=== PATIENT | male | born 1940 | race Caucasian/White ===

== ENCOUNTER 2022-01-28 14:18 | Inpatient (IN) | payer OTHER, MEDICAID ==
[~2022-01-28] VITALS: Ht 175.3 cm; Wt 80.3 kg
[2022-01-28 14:30] VITALS: BP_SYST 145
[2022-01-28 14:44] LABS: BASOPHILS % (AUTO) 0.4 % (0.0-2.0); EOSINOPHILS # (AUTO) 0.1 K/uL (0.0-0.4); EOSINOPHILS % (AUTO) 0.7 % (0.0-4.0); HEMATOCRIT 38.5 % (36-54); HEMOGLOBIN 13.2 g/dL (14.0-18.0); LYMPHOCYTES # (AUTO) 0.7 K/uL (1.0-5.5); LYMPHOCYTES % (AUTO) 6.7 % (20.5-51.5); MEAN CORPUSCULAR HEMOGLOBIN 32 pg (27-31); MEAN CORPUSCULAR HGB CONC 34 % (32-36); MEAN CORPUSCULAR VOLUME 95 fL (79.0-98.0); MONOCYTES # (AUTO) 0.6 K/uL (0.0-1.0); NEUTROPHILS % (AUTO) 86.2 % (40.0-70.0); PLATELET COUNT (AUTO) 150 K/uL (130-430); RED BLOOD CELL COUNT(AUTO) 4.07 MIL/uL (4.2-6.2); RED CELL DISTRIBUTION WIDTH 14.8 % (9.0-15.0); WHITE BLOOD COUNT (AUTO) 10.4 K/uL (4.8-10.8)
[2022-01-28 14:59] LABS: ANION GAP 4 (5-15); CALCIUM 9.6 mg/dL (8.4-11.0); CHLORIDE 97 mmol/L (98-107); CREATININE 0.73 mg/dL (0.55-1.30); GLUCOSE 112 mg/dL (70-99); POTASSIUM 4.3 mmol/L (3.5-5.1); SODIUM SERUM 132 mmol/L (136-145); UREA NITROGEN, BLOOD 19 mg/dL (8-21)
[2022-01-28 15:10] LABS: ALANINE AMINOTRANSFERASE 18 U/L (12-78); ALBUMIN 3.6 g/dL (3.4-4.8); ASPARTATE AMINOTRANSFERASE 22 U/L (10-37); PROTHROMBIN TIME 10.3 SECS (9.5-12.5); TOTAL BILIRUBIN 0.4 mg/dL (0.0-1.0)
[2022-01-28 17:13] LABS: BILIRUBIN,URINE NEGATIVE (NEGATIVE); BLOOD, URINE 3+ (NEGATIVE); CLARITY/URINE TURBID (CLEAR); COLOR,URINE RED (YELLOW); GLUCOSE,URINE NEGATIVE (NEGATIVE); KETONES,URINE NEGATIVE (NEGATIVE); LEUKOCYTE ESTERASE ,URINE 2+ (NEGATIVE); NITRITE, URINE NEGATIVE (NEGATIVE); PH,URINE 7.5 (5.0-8.0); PROTEIN URINE 2+ (NEGATIVE); UROBILINOGEN,URINE 0.2 (0.2-1.0)
[2022-01-28] MEDS ORDERED: ONDANSETRON HCL 4 MG/2 ML VIAL IVP ONE (17:15)
[2022-01-28 17:34] LABS: RBC,URINE >100 /HPF (0-3)
[2022-01-28 17:35] LABS: BACTERIA,URINE FEW /HPF (None Seen); MUCUS,URINE None Seen /LPF (None Seen)
[2022-01-28] MEDS ORDERED: MORPHINE 2 MG/ML INJ. SYRINGE IVP ONE (17:45)
[2022-01-28] MEDS ORDERED: ONDANSETRON HCL 4 MG/2 ML VIAL IVP PRN (19:45)
[2022-01-28] MEDS ORDERED: ACETAMINOPHEN 325 MG TABLET GT PRN (19:45)
[2022-01-28] MEDS ORDERED: ALBU2.5V7 INH (21:38)
[2022-01-28] MEDS ORDERED: ASCO500T20 GT (21:38)
[2022-01-28] MEDS ORDERED: LIP20 GT (21:38)
[2022-01-28] MEDS ORDERED: UTI-STAT GT (21:45)
[2022-01-28] MEDS ORDERED: ONDA4TAB5 GT (21:45)
[2022-01-28] MEDS ORDERED: MELA3TAB55 GT (21:45)
[2022-01-28] MEDS ORDERED: TRAM50TA2 GT (21:45)
[2022-01-28] MEDS ORDERED: CALC-740 GT (21:45)
[2022-01-28] MEDS ORDERED: FOLI-43 GT (21:45)
[2022-01-28] MEDS ORDERED: OMEP20TA20 GT (21:45)
[2022-01-28] MEDS ORDERED: POLY17PO20 GT (21:45)
[2022-01-28] MEDS ORDERED: REGL10 GT (21:45)
[2022-01-28] MEDS ORDERED: MULT-1193 GT (21:45)
[2022-01-29 01:00] VITALS: BP_SYST 152
[2022-01-29 08:00] VITALS: BP_SYST 127; BP_SYST 136
[2022-01-29] MEDS ORDERED: MINERAL OIL 30 ML UDC GT ONE (10:45)
[2022-01-29] MEDS ORDERED: POLYETHYLENE GLYCOL 3350, 17 GM/ POWD.PACK GT ONE (10:45)
[2022-01-29 12:30] VITALS: BP_SYST 138
[2022-01-29 16:48] VITALS: BP_SYST 120; BP_SYST 124
[2022-01-30] MEDS: ACETAMINOPHEN 325 MG TABLET GT PRN
[2022-01-30 00:37] VITALS: BP_SYST 155
[2022-01-30 08:00] VITALS: BP_SYST 134
[2022-01-30] MEDS: POLYETHYLENE GLYCOL 3350, 17 GM/ POWD.PACK GT SCH (09:50)
[2022-01-30] MEDS ORDERED: DIATR MEGLU/DIATRIZ SOD 30 ML SOLUTION PO ONE (11:35)
[2022-01-30 12:59] VITALS: BP_SYST 153
[2022-01-30 16:23] VITALS: BP_SYST 140
[2022-01-30 20:00] VITALS: BP_SYST 147
[2022-01-30] MEDS: EMOLLIENT COMBINATION NO.73 78 GM CREAM..G. TP SCH (22:26)
[2022-01-30] MEDS: KETOROLAC TROMETHAMINE 15 MG VIAL IVP PRN (23:18)
[2022-01-31 02:25] VITALS: BP_SYST 134
[2022-01-31 06:21] LABS: BASOPHILS # (AUTO) 0.1 K/uL (0.0-0.2); BASOPHILS % (AUTO) 0.7 % (0.0-2.0); EOSINOPHILS # (AUTO) 0.1 K/uL (0.0-0.4); EOSINOPHILS % (AUTO) 1.2 % (0.0-4.0); HEMATOCRIT 37.9 % (36-54); HEMOGLOBIN 12.8 g/dL (14.0-18.0); LYMPHOCYTES # (AUTO) 0.9 K/uL (1.0-5.5); LYMPHOCYTES % (AUTO) 12.3 % (20.5-51.5); MEAN CORPUSCULAR HEMOGLOBIN 32 pg (27-31); MEAN CORPUSCULAR HGB CONC 34 % (32-36); MEAN CORPUSCULAR VOLUME 95 fL (79.0-98.0); MONOCYTES # (AUTO) 0.7 K/uL (0.0-1.0); MONOCYTES % (AUTO) 9.5 % (1.7-9.3); NEUTROPHILS # (AUTO) 5.8 K/uL (1.8-7.7); NEUTROPHILS % (AUTO) 76.3 % (40.0-70.0); PLATELET COUNT (AUTO) 153 K/uL (130-430); RED BLOOD CELL COUNT(AUTO) 3.98 MIL/uL (4.2-6.2); RED CELL DISTRIBUTION WIDTH 13.9 % (9.0-15.0); WHITE BLOOD COUNT (AUTO) 7.6 K/uL (4.8-10.8)
[2022-01-31 06:26] LABS: ANION GAP 8 (5-15); CALCIUM 8.8 mg/dL (8.4-11.0); CHLORIDE 96 mmol/L (98-107); CREATININE 0.73 mg/dL (0.55-1.30); GLUCOSE 98 mg/dL (70-99); POTASSIUM 4.1 mmol/L (3.5-5.1); SODIUM SERUM 135 mmol/L (136-145); UREA NITROGEN, BLOOD 22 mg/dL (8-21)
[2022-01-31 08:00] VITALS: BP_SYST 150
[2022-01-31] MEDS: POLYETHYLENE GLYCOL 3350, 17 GM/ POWD.PACK GT SCH (08:54)
[2022-01-31] MEDS: EMOLLIENT COMBINATION NO.73 78 GM CREAM..G. TP SCH ×2 (08:56→21:16)
[2022-01-31 12:00] VITALS: BP_SYST 142
[2022-01-31 16:00] VITALS: BP_SYST 145
[2022-02-01 00:53] VITALS: BP_SYST 144
[2022-02-01] MEDS: KETOROLAC TROMETHAMINE 15 MG VIAL IVP PRN (06:01)
[2022-02-01 09:17] VITALS: BP_SYST 150
[2022-02-01] MEDS: POLYETHYLENE GLYCOL 3350, 17 GM/ POWD.PACK GT SCH (09:52)
[2022-02-01] MEDS: EMOLLIENT COMBINATION NO.73 78 GM CREAM..G. TP SCH ×2 (09:53→22:28)
[2022-02-01 12:56] VITALS: BP_SYST 147
[2022-02-01 16:00] VITALS: BP_SYST 148
[2022-02-01 20:00] VITALS: BP_SYST 149
[2022-02-02 02:22] VITALS: BP_SYST 132
[2022-02-02 07:00] VITALS: BP_SYST 144
[2022-02-02 07:59] VITALS: BP_SYST 144
[2022-02-02] MEDS: POLYETHYLENE GLYCOL 3350, 17 GM/ POWD.PACK GT SCH (09:32)
[2022-02-02] MEDS: EMOLLIENT COMBINATION NO.73 78 GM CREAM..G. TP SCH ×2 (09:41→20:21)
[2022-02-02 12:00] VITALS: BP_SYST 138
[2022-02-02 16:03] VITALS: BP_SYST 145
[2022-02-02 20:00] VITALS: BP_SYST 152
[2022-02-02] MEDS: ACETAMINOPHEN 325 MG TABLET GT PRN (20:20)
[2022-02-03 00:30] VITALS: BP_SYST 128
[2022-02-03 07:00] VITALS: BP_SYST 133
[2022-02-03 08:37] VITALS: BP_SYST 133
[2022-02-03] MEDS: POLYETHYLENE GLYCOL 3350, 17 GM/ POWD.PACK GT SCH (08:46)
[2022-02-03] MEDS: EMOLLIENT COMBINATION NO.73 78 GM CREAM..G. TP SCH (08:47)
[2022-02-03 11:33] VITALS: BP_SYST 136
[2022-02-03 12:00] VITALS: BP_SYST 140
[2022-02-03 12:04] VITALS: BP_SYST 133
[2022-02-03] MEDS ORDERED: traMADol HCL HCL 50 MG TABLET (ULTRAM) GT PRN (12:30)
[2022-02-03] MEDS ORDERED: ALBUTEROL SULFATE 0.083% 2.5 MG/3 ML VIAL.NEB INH PRN (12:30)
[2022-02-03] MEDS ORDERED: ONDANSETRON 4 MG ODT TAB GT PRN (12:30)
[2022-02-03] MEDS ORDERED: METOCLOPRAMIDE HCL 10 MG/10 ML UDC GT SCH (12:30)
[2022-02-03] MEDS ORDERED: CALCIUM CARBONATE 500 MG/ TAB.CHEW GT SCH (12:30)
[2022-02-03] MEDS ORDERED: POLYETHYLENE GLYCOL 3350, 17 GM/ POWD.PACK GT SCH (21:00)
[2022-02-03] MEDS ORDERED: ASCORBIC ACID 500 MG TABLET GT SCH (21:00)
[2022-02-03] MEDS ORDERED: ATORVASTATIN 20 MG TABLET GT SCH (21:00)
[2022-02-03] MEDS ORDERED: MELATONIN 3 MG TABLET GT SCH (21:00)
[2022-02-04] MEDS ORDERED: FOLIC ACID 1 MG TABLET GT SCH (09:00)
== END 2022-02-03 14:20 | DRG 394 ==
LOC: SED 14:18 → STU 19:39
PROVIDERS: ADMIT Family Medicine; ATTEND Family Medicine
DX: K94.23 Gastrostomy malfunction (principal); J96.10 Chronic respiratory failure, unspecified whether with hypoxia or hypercapnia; N39.0 Urinary tract infection, site not specified; K56.7 Ileus, unspecified; Z99.11 Dependence on respirator [ventilator] status; N13.9 Obstructive and reflux uropathy, unspecified; F20.9 Schizophrenia, unspecified; K59.00 Constipation, unspecified; K80.20 Calculus of gallbladder without cholecystitis without obstruction; R13.0 Aphagia; R33.9 Retention of urine, unspecified; K21.9 Gastro-esophageal reflux disease without esophagitis; K52.9 Noninfective gastroenteritis and colitis, unspecified; Y83.8 Other surgical procedures as the cause of abnormal reaction of the patient, or of later complication, without mention of misadventure at the time of the procedure; I69.320 Aphasia following cerebral infarction; Y92.89 Other specified places as the place of occurrence of the external cause
CPT/HCPCS: 36415; 76376; 76770; 80048; 80053; 81000; 82962; 85025; 85610-TC; 85730-TC; 87040; 87081; 87086; 94760; 96374; 96375; 99285; G0378; J0696; J1885; J2270; J2405; J7060; Q9964